=== PATIENT | male | born 2000 | race Caucasian/White ===

== ENCOUNTER 2019-06-28 13:25 | Emergency (ER) | payer OTHER ==
[2019-06-28] MEDS ORDERED: Lidocaine 2% 20 ML MDV INFILT ONE (13:26)
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
[2019-06-28] MEDS ORDERED: Ondansetron 4 MG Tab.DIS PO ONE (13:58)
[2019-06-28] MEDS ORDERED: Diphtheria,Pertussis(Acell),Tetanus Vaccine 0.5 ML SDV IM ONE (13:58)
== END 2019-06-28 16:00 | disposition home or self-care (01) ==
LOC: FB.ED 13:25
DX: S01.112A Laceration without foreign body of left eyelid and periocular area, initial encounter (principal); S86.911A Strain of unspecified muscle(s) and tendon(s) at lower leg level, right leg, initial encounter; S00.83XA Contusion of other part of head, initial encounter; F17.200 Nicotine dependence, unspecified, uncomplicated; Z23 Encounter for immunization; V49.59XA Passenger injured in collision with other motor vehicles in traffic accident, initial encounter; Y92.410 Unspecified street and highway as the place of occurrence of the external cause
CPT/HCPCS: 12013; 70450; 71046; 72125; 73562; 90471; 90715; 99284; A9270; J2001